=== PATIENT | female | born 1960 ===

== ENCOUNTER → 2020-07-02 | Outpatient (CLI) | payer OTHER | END | disposition home or self-care (01) | LOC: LAB EV 17:09 → LAB SHORT 17:09 | DX: J02.9 Acute pharyngitis, unspecified (principal) | CPT/HCPCS: 87081 ==

== ENCOUNTER → 2021-05-19 | Outpatient (CLI) | payer OTHER ==
[2021-05-21 17:58] LABS: CORONAVIRUS (COVID19) CSH-NRL Negative (Negative)
== END ==
LOC: LAB 13:56 → LAB SHORT 13:56
PROVIDERS: Family Medicine
DX: Z01.812 Encounter for preprocedural laboratory examination (principal); Z20.822 Contact with and (suspected) exposure to COVID-19
CPT/HCPCS: U0003

== ENCOUNTER → 2022-02-10 | Outpatient (CLI) | payer OTHER | END | disposition home or self-care (01) | LOC: LAB SHORT 14:13 | DX: J02.9 Acute pharyngitis, unspecified (principal) | CPT/HCPCS: 87081 ==

== ENCOUNTER → 2024-03-28 | Outpatient (CLI) | payer OTHER ==
[2024-03-29 14:24] LABS: Adenovirus F 40/41 Not Detected (NOT DETECT); Astrovirus Not Detected (NOT DETECT); Campylobacter Sp Not Detected (NOT DETECT); Cryptosporidium Not Detected (NOT DETECT); Cyclospora Cayetanensis Not Detected (NOT DETECT); E. Coli O157 Not Detected (NOT DETECT); Entamoeba Histolytica Not Detected (NOT DETECT); Enteroaggregative E. coli-EAEC Not Detected (NOT DETECT); Enteropathogenic E. coli-EPEC Detected (NOT DETECT); Enterotoxigenic E. coli-ETEC Not Detected (NOT DETECT); Giardia Lamblia Not Detected (NOT DETECT); Norovirus GI/GII Not Detected (NOT DETECT); Plesiomonas Shigelloides Not Detected (NOT DETECT); Rotavirus A Not Detected (NOT DETECT); Salmonella Sp Not Detected (NOT DETECT); Sapovirus Not Detected (NOT DETECT); Shiga Toxin-prod E. coli-STEC Not Detected (NOT DETECT); Shigella/Enteroin E. coli-EIEC Not Detected (NOT DETECT); Vibrio Cholerae Not Detected (NOT DETECT); Vibrio Sp Not Detected (NOT DETECT); Yersinia Enterocolitica Not Detected (NOT DETECT)
== END | disposition home or self-care (01) ==
LOC: LAB 14:14 → LAB SHORT 14:14
PROVIDERS: Nurse Practitioner Family
DX: R10.12 Left upper quadrant pain (principal); R19.5 Other fecal abnormalities
CPT/HCPCS: 87507

== ENCOUNTER 2024-04-13 09:40 | Day surgery (SDC) | payer OTHER ==
[~2024-04-13] VITALS: Ht 175.3 cm; Wt 70.7 kg
[2024-04-13] VITALS (14 sets, daily range): BP systolic 109–137; BP diastolic 57–95
[~2024-04-13 09:40] MED LIST: CeFAZolin Sodium 2,000 MG in NS 100 ML IV SCH; Lactated Ringer's 1,000 ML IV SCH
--- NOTE | 2024-04-13 10:47 | NUR ---
History, Chart, Medications and Allergies reviewed before start of procedure. Patient confirms NPO status and agrees with scheduled surgery. Lungs clear T/O to Auscultation. Pre-Op teaching done. Pt verbalizes understanding.
[2024-04-13] MEDS ORDERED: FentaNYL Citrate 50 MCG/ML 2 ML Injection ONE ×2 (12:09→13:16)
[2024-04-13] MEDS ORDERED: propofoL 20 ML IV ONE ×2 (12:09→12:35)
[2024-04-13] MEDS ORDERED: Dexamethasone Sod Phos 10 MG/ML 1ML VIAL ONE (12:09)
[2024-04-13] MEDS ORDERED: Ondansetron HCl 2 MG / ML 2ML Vial ONE (12:09)
[2024-04-13] MEDS ORDERED: Ketorolac Tromethamine 30mg Vial ONE (12:52)
[2024-04-13] MEDS ORDERED: Ondansetron HCl 2 MG / ML 2ML Vial IV PRN (13:35)
[2024-04-13] MEDS ORDERED: OxyCODONE 5 mg/Acetamin 325 mg TABLET PO PRN (13:35)
--- NOTE | 2024-04-13 14:53 | NUR ---
Discharge instructions reviewed with patient. Patient verbalizes understanding. Copy given to patient to take home. PT STATES SHE WILL TAKE TYLENOL AND IBUPROFEN FOR PAIN. TOLERATING ICE CHIPS AND DENIED NEED FOR ANYTHING TO SNACK ON. DAUGHTER PETRA AT BEDSIDE. PT STATES SHAKING/SHIVERY FEELING FROM ANESTHESIA IS SUBSIDING.
--- NOTE | 2024-04-13 15:00 | NUR ---
PT DRESSED, UP TO VOID. Discharged via wheelchair to private car for ride home.
== END 2024-04-13 15:05 | disposition home or self-care (01) ==
LOC: ORSCMMR 09:40 → ORD 11:30 → ORSCMMR 15:05
PROVIDERS: Obstetrics & Gynecology
PROC: 0UDB8ZX Extraction of Endometrium, Via Natural or Artificial Opening Endoscopic, Diagnostic (ICD-10-PCS; principal; 2024-04-13 11:30)
DX: N95.0 Postmenopausal bleeding (principal); N83.292 Other ovarian cyst, left side; N84.0 Polyp of corpus uteri
CPT/HCPCS: 88305; J0690; J1100; J1885; J2405; J2704; J3010; J7120